=== PATIENT | male | born 1980 | race American Indian/Alaskan Native ===

== ENCOUNTER 2018-02-14 22:35 | Emergency (ER) | payer SELFPAY ==
[2018-02-14] MEDS ORDERED: Alum Hydrox/Mag Hydrox/Simeth 15 ML, Lidocaine 2% 15 ML PO ONE ×2 (23:16)
--- NOTE | 2018-02-14 23:18 | EDM.PDOC ---
ED HPI GENERAL MEDICAL PROBLEM - General Chief Complaint: Cardiovascular Problem Stated Complaint: [facility] Time Seen by Provider: 02/14/18 22:50 Source of Information: Reports: Patient, EMS, RN Notes Reviewed History Limitations: Reports: No Limitations - History of Present Illness INITIAL COMMENTS - FREE TEXT/NARRATIVE: 37-year-old gentleman presents emergency department day complaint of epigastric pain, he states his had the pain for about 24 hours he usually gets relief when he eats however about an hour after eating the pain comes back quite severe. He is currently incarcerated EMS services were called he did receive aspirin as well as 2 sprays of nitroglycerin which he states initially gave him some relief that now the pain has returned, initial EKG done by EMS crew shows no acute process epigastric Pain Score (Numeric/FACES): 7 - Related Data Allergies Allergy/AdvReac Type Severity Reaction Status Date / Time No Known Allergies Allergy Verified 02/14/18 23:01 Home Meds: Home Meds NK [No Known Home Meds] 02/14/18 [History] Past Medical History Musculoskeletal History: Reports: Fracture, Other (See Below) Other Musculoskeletal History: right hand fracture. right foot. rib fracture. bilateral wrist fractures Neurological History: Reports: Concussion Psychiatric History: Reports: ADHD, Addiction - Infectious Disease History Infectious Disease History: Reports: Chicken Pox Social & Family History - Tobacco Use Smoking Status *Q: Current Every Day Smoker Years of Tobacco use: 24 Packs/Tins Daily: 1 - Caffeine Use Caffeine Use: Reports: Soda, Tea - Recreational Drug Use Recreational Drug Use: Yes Drug Use in Last 12 Months: Yes Recreational Drug Type: Reports: Marijuana/Hashish Recreational Drug Use Frequency: Weekly ED ROS GENERAL - Review of Systems Review Of Systems: See Below Constitutional: Reports: No Symptoms HEENT: Reports: No Symptoms Respiratory: Reports: No Symptoms Cardiovascular: Reports: Chest Pain GI/Abdominal: Reports: Abdominal Pain (Epigastric region). Denies: Nausea, Vomiting : Reports: No Symptoms Musculoskeletal: Reports: No Symptoms Skin: Reports: No Symptoms Neurological: Reports: No Symptoms ED EXAM, GENERAL - Physical Exam Exam: See Below Exam Limited By: No Limitations General Appearance: Alert, WD/WN, No Apparent Distress Respiratory/Chest: No Respiratory Distress, Lungs Clear, Normal Breath Sounds, No Accessory Muscle Use Cardiovascular: Regular Rate, Rhythm, No Murmur GI/Abdominal: Soft, Tender (Epigastric tenderness) Course - Vital Signs Last Recorded V/S: Last Vital Signs Temp 98.8 F 02/14/18 23:02 Pulse 82 02/14/18 23:02 Resp 18 02/14/18 23:02 BP 151/90 H 02/14/18 23:02 Pulse Ox 97 02/14/18 23:02 - Orders/Labs/Meds Orders: Active Orders 24 hr Category Date Time Status Cardiac Monitoring [RC] .As Directed Care 02/14/18 23:15 Active Chest 2V [CR] Stat Exams 02/14/18 23:16 Taken Labs: Laboratory Tests 02/14/18 02/14/18 Range/Units 23:24 23:24 WBC 11.1 H (4.5-11.0) K/uL RBC 4.47 (4.30-5.90) M/uL Hgb 13.8 (12.0-15.0) g/dL Hct 39.8 L (40.0-54.0) % MCV 89 (80-98) fL MCH 31 (27-31) pg MCHC 35 (32-36) % Plt Count 367 (150-400) K/uL Neut % (Auto) 65 (36-66) % Lymph % (Auto) 27 (24-44) % [place] % (Auto) 7 H (2-6) % Eos % (Auto) 1 L (2-4) % Baso % (Auto) 0 (0-1) % Sodium 143 (140-148) mmol/L Potassium 3.9 (3.6-5.2) mmol/L Chloride 107 (100-108) mmol/L Carbon Dioxide 27 (21-32) mmol/L Anion Gap 9.5 (5.0-14.0) mmol/L BUN 20 H (7-18) mg/dL Creatinine 0.9 (0.8-1.3) mg/dL Est Cr Clr Drug Dosing 118.29 mL/min Estimated GFR (MDRD) > 60 (>60) Glucose 98 (74-106) mg/dL Calcium 9.0 (8.5-10.1) mg/dL Total Bilirubin 0.3 (0.2-1.0) mg/dL AST 14 L (15-37) U/L ALT 22 (12-78) U/L Alkaline Phosphatase 64 (46-116) U/L Troponin I < 0.017 (0.000-0.056) ng/mL Total Protein 6.6 (6.4-8.2) g/dL Albumin 3.7 (3.4-5.0) g/dL Globulin 2.9 (2.3-3.5) g/dL Albumin/Globulin Ratio 1.3 (1.2-2.2) Lipase 159 (73-393) U/L Meds: Medications Discontinued Medications Generic Name Dose Route Start Last Admin Trade Name Freq PRN Reason Stop Dose Admin Calcium Carbonate/Glycine 1,000 mg 02/15/18 00:45 02/15/18 00:51 Tums PO 02/15/18 00:46 1,000 mg ONETIME ONE Administration Al Hydroxide/Mg Hydroxide 15 0 ml 02/14/18 23:16 02/14/18 23:30 ml/ Lidocaine HCl 15 ml PO 02/14/18 23:17 30 ml ONETIME ONE Administration Fentanyl 50 mcg 02/14/18 23:58 02/15/18 00:03 Sublimaze IVPUSH 02/14/18 23:59 50 mcg ONETIME ONE Administration Pantoprazole Sodium 40 mg 02/14/18 23:58 02/15/18 00:02 Protonix Iv IVPUSH 02/14/18 23:59 40 mg ONETIME ONE Administration Departure - Departure Time of Disposition: 01:08 Disposition: Home, Self-Care 01 Condition: Good Clinical Impression: Gastroesophageal reflux disease Qualifiers: Esophagitis presence: esophagitis presence not specified Qualified Code(s): K21.9 - Gastro-esophageal reflux disease without esophagitis Referrals: PCP,None [Primary Care Provider] - Forms: ED Department Discharge Additional Instructions: Start the Protonix tomorrow, Please followup with your primary care provider in 3-5 days if not better, please call return to the emergency department with worsening of symptoms. - My Orders Last 24 Hours: My Active Orders 02/14/18 23:15 Cardiac Monitoring [RC] .As Directed 02/14/18 23:16 Chest 2V [CR] Stat - Assessment/Plan Last 24 Hours: My Active Orders 02/14/18 23:15 Cardiac Monitoring [RC] .As Directed 02/14/18 23:16 Chest 2V [CR] Stat Plan: Assessment Acuity = acute Site and laterality = epigastric pain probably gastroesophageal reflux Etiology = unclear etiology Manifestations = none Location of injury = Home Lab values = CBC, CMP, troponin all negative , EKG shows no acute process chest x-ray I did review films myself I cannot appreciate any acute process, the official read from radiology is pending Plan He received some relief from combination GI cocktail and Tums, prescription written for Protonix 20 mg once a day he will follow-up with his primary care in the next 3-5 days for further evaluation This note was dictated using [email or web address] voice recognition software please call with any questions on syntax or louisa.
[2018-02-14] MEDS ORDERED: Pantoprazole 40 MG Vial IVPUSH ONE (23:58)
[2018-02-14] MEDS ORDERED: fentaNYL 100 MCG/2 ML SDV IVPUSH ONE (23:58)
[2018-02-15] MEDS ORDERED: Calcium Carbonate 500 MG Tab.Chew PO ONE (00:45)
--- NOTE | 2018-02-15 10:06 | CR ---
Chest 2V HISTORY: No Clinical Info FINDINGS: Heart size within normal limits. Pulmonary vasculature within normal limits. No evidence fo r focal consolidation or cardiopulmonary process. Pulmonary hyperinflation. IMPRESSION: No radiographic evidence for acute cardiopulmonary process.
== END 2018-02-15 01:38 | disposition home or self-care (01) ==
LOC: JP.ED 22:35
DX: K21.9 Gastro-esophageal reflux disease without esophagitis (principal); F17.210 Nicotine dependence, cigarettes, uncomplicated
CPT/HCPCS: 36415; 71046; 80053; 83690; 84484; 85025; 96374; 96375; 99283; 99284; A9270; C9113; J3010